=== PATIENT | female | born 1960 | race Caucasian/White ===

== ENCOUNTER 2017-02-27 04:40 | Day surgery (SDC) | payer BC, MEDICARE ==
[~2017-02-27 04:40] MED LIST: ABILIFY5 PO; ANADS PO; AZOR1 TA1 PO; AZOR1 TA2 PO; AZOR1 TA3 PO; BUTRANS1 EAC2 TOP; CELEBREX2 PO; CYMBALTA60 PO; DIL4TAB PO; DONNATA1 OR; FLECTOR1.3 % TOP; GRALISE600 MG PO; LORTAB10 PO; MOBIC7.5 PO; MSCONT15 PO; NAP500 PO; NEUR600 PO; NORCO1 TA1 PO; NORCO1 TAB PO; PR25 PO; TOPAMAX50 MG PO; V5 PO; VOLT75 PO; XANAX1 MG PO; ZANAFLEX 4 MG TA4 MG PO
[2017-03-19] MEDS ORDERED: FLECTOR PATCH T (15:26)
== END 2017-02-27 07:50 | disposition home or self-care (01) ==
LOC: SDC 04:40
PROVIDERS: Orthopaedic Surgery Orthopaedic Surgery of the Spine
PROC: B01BZZZ Fluoroscopy of Spinal Cord (ICD-10-PCS; 2017-02-27)
PROC: 3E0R3BZ Introduction of Anesthetic Agent into Spinal Canal, Percutaneous Approach (ICD-10-PCS; principal; 2017-02-27 07:00)
DX: M48.06 Spinal stenosis, lumbar region (principal); I10 Essential (primary) hypertension; F41.9 Anxiety disorder, unspecified; F32.9 Major depressive disorder, single episode, unspecified; G47.30 Sleep apnea, unspecified; M19.90 Unspecified osteoarthritis, unspecified site; K21.9 Gastro-esophageal reflux disease without esophagitis; Z90.49 Acquired absence of other specified parts of digestive tract; Z77.22 Contact with and (suspected) exposure to environmental tobacco smoke (acute) (chronic); Z99.81 Dependence on supplemental oxygen; Z98.890 Other specified postprocedural states
CPT/HCPCS: J2250; J3010; Q9967

== ENCOUNTER 2017-03-27 04:23 | Day surgery (SDC) | payer BC, MEDICARE ==
[~2017-03-27 04:23] MED LIST changes: +FLECTOR PATCH T
== END 2017-03-27 23:59 | disposition home or self-care (01) ==
LOC: SDC 04:23
PROVIDERS: Orthopaedic Surgery Orthopaedic Surgery of the Spine
PROC: 3E0S3BZ Introduction of Anesthetic Agent into Epidural Space, Percutaneous Approach (ICD-10-PCS; 2017-03-27)
PROC: 3E0S33Z Introduction of Anti-inflammatory into Epidural Space, Percutaneous Approach (ICD-10-PCS; principal; 2017-03-27 07:15)
DX: M54.17 Radiculopathy, lumbosacral region (principal); M54.5 Low back pain; F41.9 Anxiety disorder, unspecified; F32.9 Major depressive disorder, single episode, unspecified; E04.1 Nontoxic single thyroid nodule; M48.00 Spinal stenosis, site unspecified; M19.90 Unspecified osteoarthritis, unspecified site; M79.7 Fibromyalgia; I10 Essential (primary) hypertension; I89.0 Lymphedema, not elsewhere classified; G47.33 Obstructive sleep apnea (adult) (pediatric); Z98.1 Arthrodesis status; Z98.890 Other specified postprocedural states; Z86.14 Personal history of Methicillin resistant Staphylococcus aureus infection; Z79.899 Other long term (current) drug therapy; Z90.49 Acquired absence of other specified parts of digestive tract; Z90.89 Acquired absence of other organs; Z79.891 Long term (current) use of opiate analgesic
CPT/HCPCS: J2250; J3010; Q9967

== ENCOUNTER 2017-05-15 04:35 | Day surgery (SDC) | payer BC, MEDICARE | END 2017-05-15 18:45 | disposition home or self-care (01) | LOC: SDC 04:35 | PROVIDERS: Orthopaedic Surgery Orthopaedic Surgery of the Spine | PROC: 3E0U3BZ Introduction of Anesthetic Agent into Joints, Percutaneous Approach (ICD-10-PCS; 2017-05-15) | PROC: 3E0U33Z Introduction of Anti-inflammatory into Joints, Percutaneous Approach (ICD-10-PCS; principal; 2017-05-15 07:30) | DX: M25.552 Pain in left hip (principal); G47.33 Obstructive sleep apnea (adult) (pediatric); Z99.89 Dependence on other enabling machines and devices; Z90.89 Acquired absence of other organs; Z98.1 Arthrodesis status; Z98.890 Other specified postprocedural states; Z90.49 Acquired absence of other specified parts of digestive tract | CPT/HCPCS: J2250; J3010; Q9967 ==